=== PATIENT | male | born 1970 | race Caucasian/White ===

== ENCOUNTER 2019-10-29 14:12 | Emergency (ER) | payer MEDICARE, OTHER ==
[~2019-10-29] VITALS: Ht 180.3 cm; Wt 113.4 kg
[~2019-10-29 14:12] MED LIST: ANASTROZOLE 1MG TAB PO; Depo-Testos200 MG/ML IM; LOSARTAN POTASS25 M2 PO; NAPR500 PO; Norco 5-325 Ta1 EACH PO; Omeprazole20 M1 PO
[2019-10-29] MEDS ORDERED: IBUP400 PO (15:26)
== END 2019-10-29 16:00 | disposition home or self-care (01) ==
LOC: ER 14:12
DX: S46.911A Strain of unspecified muscle, fascia and tendon at shoulder and upper arm level, right arm, initial encounter (principal); F41.9 Anxiety disorder, unspecified; I10 Essential (primary) hypertension; Z88.0 Allergy status to penicillin; Z88.8 Allergy status to other drugs, medicaments and biological substances; Z87.891 Personal history of nicotine dependence; Z79.899 Other long term (current) drug therapy; X50.0XXA Overexertion from strenuous movement or load, initial encounter; Y93.89 Activity, other specified
CPT/HCPCS: 73030; 96372; 99283-25; J1885

== ENCOUNTER 2019-11-01 07:54 | Emergency (ER) | payer OTHER, MEDICARE ==
[~2019-11-01] VITALS: Ht 180.3 cm; Wt 71.7 kg
[~2019-11-01 07:54] MED LIST changes: +IBUP400 PO
[2019-11-01] MEDS ORDERED: Percocet 5-3251 EACH PO (08:58)
== END 2019-11-01 09:15 | disposition home or self-care (01) ==
LOC: ER 07:54
DX: S40.011A Contusion of right shoulder, initial encounter (principal); I10 Essential (primary) hypertension; F17.200 Nicotine dependence, unspecified, uncomplicated; Z88.0 Allergy status to penicillin; Z88.8 Allergy status to other drugs, medicaments and biological substances; Z79.899 Other long term (current) drug therapy; X50.1XXA Overexertion from prolonged static or awkward postures, initial encounter
CPT/HCPCS: 99282